=== PATIENT | female | born 1955 | race Native Hawaiian/Other Pacific Islander ===

== ENCOUNTER 2021-02-07 16:26 | Outpatient (CLI) | payer OTHER ==
[2021-02-07 17:06] LABS: PLATELET COUNT 278 K/uL (152-353)
[2021-02-07 17:36] LABS: POTASSIUM 4.1 mmol/L (3.6-5.2)
== END 2021-02-07 21:01 | disposition home or self-care (01) ==
LOC: LAB 16:26
PROVIDERS: ATTEND Nurse Practitioner Family
DX: Z00.00 Encounter for general adult medical examination without abnormal findings (principal); I10 Essential (primary) hypertension; I69.30 Unspecified sequelae of cerebral infarction; F41.1 Generalized anxiety disorder; F32.9 Major depressive disorder, single episode, unspecified; G62.89 Other specified polyneuropathies; G89.29 Other chronic pain; M25.552 Pain in left hip; M25.562 Pain in left knee; M62.838 Other muscle spasm; R29.6 Repeated falls; Z79.899 Other long term (current) drug therapy; E53.8 Deficiency of other specified B group vitamins
CPT/HCPCS: 80053; 80061; 82306; 82607; 83036; 84439; 84443; 85027

== ENCOUNTER 2021-02-28 15:55 | Outpatient (CLI) | payer OTHER | END 2021-02-28 20:53 | disposition home or self-care (01) | LOC: LAB 15:55 | PROVIDERS: ATTEND Nurse Practitioner Family | DX: R30.0 Dysuria (principal) | CPT/HCPCS: 87086; 87088 ==